=== PATIENT | female | born 1980 | race Caucasian/White ===

== ENCOUNTER 2023-07-23 13:58 | Emergency (ER) | payer BC, MEDICAID, SELFPAY ==
--- NOTE | 2023-07-23 14:04 | ECG_ITS ---
[facility] Test Date: 2023-07-23 Pat Name: Estefanía Beck Department: Room: Gender: Female [employer] In[employer]: : 1980 Requested By: Daniel St Order Number: [id number] Varghese MD: Lorena Luque M.D. Measurements Intervals [place] Rate: 67 P: 69 ID: [id number] QRS: 62 QRSD: 70 T: 62 QT: 402 QTc: 427 Interpretive Statements SINUS RHYTHM SEPTAL MYOCARDIAL INFARCTION , OF INDETERMINATE AGE [40+ ms Q WAVE IN V1/V2] No previous ECG available for comparison Electronically Signed On 07-24-2023 0:24:32 CDT by Lorena Luque M.D. [email or web address]
[2023-07-23 14:09] VITALS: PULSE 82; RESP 15; TEMP 36.6; O2SAT 99; BMI 25.7
--- NOTE | 2023-07-23 14:17 | XRR_ITS ---
PROCEDURE INFORMATION: Exam: XR Chest Exam date and time: 07/23/2023 2:26 PM Age: 43 years old Clinical indication: Pain; Angina pectoris; Additional info: Cp TECHNIQUE: Imaging protocol: Radiologic exam of the chest. Views: 1 view. COMPARISON: No relevant prior studies available. FINDINGS: Lungs: No focal consolidation. Pleural spaces: No evidence of pneumothorax. No evidence of pleural effusion. Heart/Mediastinum: Cardiomediastinal silhouette is within normal limits. Moderate projects over the left hemithorax. Bones/joints: No evidence of acute osseous abnormality. XR/XR chest 1V portable [id number] IMPRESSION: 1. No acute cardiopulmonary abnormality.
[2023-07-23 14:52] LABS: Basophils # 0.1 10^3/uL (0.0-0.1); Basophils % 0.9 %; Eosinophils # 0.1 10^3/uL (0.0-0.8); Eosinophils % 1.1 %; Hematocrit 42.8 % (36-47); Lymphocytes # 2.7 10^3/uL (0.8-4.8); Lymphocytes % 26.2 %; Mean Corpuscular HGB Conc 33.4 g/dL (30-55); Mean Corpuscular Hemoglobin 30.8 pg (27-33); Mean Platelet Volume 10.9 fL (7.4-10.4); Monocytes # 0.9 10^3/uL (0.2-0.9); Monocytes % 8.4 %; Neutrophils # 6.43 10^3/uL (1.8-7.7); Neutrophils % 63.1 %; Nucleated Red Blood Cells % 0 %; Platelet Count 240 10^3/cmm (157-399); Red Blood Count 4.65 10^6/uL (3.85-5.65); Red Cell Distribution Width 12.6 % (12.1-15.1); White Blood Count 10.19 10^3/uL (3.29-11.43)
[2023-07-23 15:06] LABS: Alanine Aminotransferase 11 U/L (0-33); Albumin Level 4.1 g/dL (3.5-5.2); Alkaline Phosphatase 67 U/L (35-105); Anion Gap 15.8 (5-19); Aspartate Amino Transferase 13 U/L (0-32); Blood Urea Nitrogen 11 mg/dL (6-20); Calcium 9.3 mg/dL (8.5-10.5); Carbon Dioxide 23 mmol/L (22-29); Chloride 106 mmol/L (98-107); Creatinine Clr Calc Pharmacy 121.5486; Globulin 3.1 g/dL (1.3-4.6); Glomerular Filtration Rate 90.5 mL/min (90-130); Glucose 102 mg/dL (65-115); Osmolality Calculated 292 mOsm/kg (285-295); Potassium 3.8 mmol/L (3.5-5.1); Sodium 141 mmol/L (136-145); Total Bilirubin 0.3 mg/dL (0.15-1.2); Total Protein 7.2 g/dL (6.6-8.7)
[2023-07-23 15:08] LABS: Troponin(5th) Baseline < 6 ng/L (0-10)
[2023-07-23 15:15] LABS: Erythrocyte Sedimentation Rate 19 mm/hr (0-15)
--- NOTE | 2023-07-23 15:36 | ED_ITS ---
HPI - Chest Pain 2 General: Chief Complaint: Chest Pain Stated Complaint: chest feels heavy when lying down Time Seen by Provider: 07/23/23 15:30 History of Present Illness: 43-year-old with a history of atrial fib rillation and tobacco dependence who presents to the emergency room with bradycardia and shortness of breath and chest discomfort. She says over the last few days since she quit smoking she has been having bradycardia and shortness of breath at night. She says when she lays down she gets tight in her chest. And short of breath. Review of Systems 2 Narrative: Constitutional symptoms: Negative except as documented in HPI. Skin symptoms: Negative except as documented in HPI. Eye symptoms: Negative except as documented in HPI. ENMT symptoms: Negative except as documented in HPI. Respiratory symptoms: Negative except as documented in HPI. Cardiovascular symptoms: Negative except as documented in HPI. Gastrointestinal symptoms: Negative except as documented in HPI. Genitourinary symptoms: Negative except as documented in HPI. Musculoskeletal symptoms: Negative except as documented in HPI. Neurologic symptoms: Negative except as documented in HPI. Psychiatric symptoms: Negative except as documented in HPI. Endocrine symptoms: Negative except as documented in HPI. Physical Exam 2 Narrative: EXAM NARRATIVE: General: Alert, no acute distress. Skin: Warm, dry. Head: Normocephalic, atraumatic. Neck: Supple, trachea midline. Eye: Extraocular movements are intact. Ears, nose, mouth and throat: mucosa moist. Cardiovascular: Regular, Normal peripheral perfusion. Respiratory: Lungs are clear to auscultation, respirations are non-labored, breath sounds are equal, Symmetrical chest wall expansion. Gastrointestinal: Soft, Nontender, Non distended, Normal bowel sounds. Musculoskeletal: Normal ROM, no deformity. Neurological: Alert and oriented, No focal neurological deficit observed. Psychiatric: Cooperative, appropriate mood & affect. Course 2 Vital Signs: Vital signs: Vital Signs Temperature 97.9 F 07/23/23 14:09 Pulse Rate 82 07/23/23 14:09 Respiratory Rate 15 07/23/23 14:09 Pulse Oximetry 99 07/23/23 14:09 Oxygen Delivery Me thod Room Air 07/23/23 14:09 MDM - Chest Pain Medical Decision Making Medical decision making: Differential diagnosis including but not limited to and based on the above HPI, review of systems and physical exam: Patient was sent here to rule out heart failure and acute coronary syndrome. EKG, chest x-ray and lab work were ordered. Orders placed to evaluate differential diagnosis based on the above differential, HPI and physical exam Chest x-ray: No acute process. No infiltrate. No pneumothorax. No cardiomegaly. This was reviewed and interpreted by myself the ER physician. Lab Review: Laboratory results were reviewed and interpreted by myself the emergency room physician. White count is 10. Hemoglobin is 14. BUN and creatinine are 11 and 0.7. Initial troponin is negative. EKG: Time 1404 rate 67. Normal sinus rhythm, No ST-T changes, no ectopy, normal [place] & QRS intervals, This was reviewed and interpreted by myself the ER physician at 1406 I reviewed the patient's medical record. Reexamination: Patient remained stable with no increased work of breathing. No altered mental status. No focal motor deficits. Assessment and plan: Shortness of breath Bradycardia Tobacco abuse in remission -Discussed with the patient that perhaps metoprolol should be ceased for some time. Also discussed that with her having quit smoking her symptoms could very well be from anxiety. She has follow-up with cardiology on Saturday. We discussed if things worsen to come back to the emergency room. I do not see any signs of heart failure. Her heart size is normal. She has no lower extremity swelling. And while she is here she is not bradycardic. - Discharged home - Discussed plan with patient. Answered any questions. - Evaluation and treatment of this problem were appropriate in the emergency setting. Lab Data 07/23/23 14:40 07/23/23 14:40 Radiology Impressions Chest X-Ray 07/23/23 14:17 IMPRESSION: 1. No acute cardiopulmonary abnormality. Laboratory Results WBC 10.19 10^3/uL (3.29-11.43) 07/23/23 14:40 RBC 4.65 10^6/uL (3.85-5.65) 07/23/23 14:40 Hgb 14.30 g/dL (11.27-16.99) 07/23/23 14:40 Hct 42.8 % (36-47) 07/23/23 14:40 MCV 92.0 fl (85-98) 07/23/23 14:40 MCH 30.8 pg (27-33) 07/23/23 14:40 MCHC 33.4 g/dL (30-55) 07/23/23 14:40 RDW 12.6 % (12.1-15.1) 07/23/23 14:40 Plt Count 240 10^3/cmm (157-399) 07/23/23 14:40 MPV 10.9 fL (7.4-10.4) H 07/23/23 14:40 Neut % (Auto) 63.1 % 07/23/23 14:40 Lymph % (Auto) 26.2 % 07/23/23 14:40 Spencer % (Auto) 8.4 % 07/23/23 14:40 Eos % (Auto) 1.1 % 07/23/23 14:40 Baso % (Auto) 0.9 % 07/23/23 14:40 Neut # (Auto) 6.43 10^3/uL (1.8-7.7) 07/23/23 14:40 Lymph # (Auto) 2.7 10^3/uL (0.8-4.8) 07/23/23 14:40 Spencer # (Auto) 0.9 10^3/uL (0.2-0.9) 07/23/23 14:40 Eos # (Auto) 0.1 10^3/uL (0.0-0.8) 07/23/23 14:40 Baso # (Auto) 0.1 10^3/uL (0.0-0.1) 07/23/23 14:40 Nucleated RBC % (auto) 0 % 07/23/23 14:40 Nucleated RBCs # 0.0 /100WBC 07/23/23 14:40 ESR 19 mm/hr (0-15) H 07/23/23 14:40 Sodium 141 mmol/L (136-145) 07/23/23 14:40 Potassium 3.8 mmol/L (3.5-5.1) 07/23/23 14:40 Chloride 106 mmol/L (98-107) 07/23/23 14:40 Carbon Dioxide 23 mmol/L (22-29) 07/23/23 14:40 Anion Gap 15.8 (5-19) 07/23/23 14:40 BUN 11 mg/dL (6-20) 07/23/23 14:40 Creatinine 0.7 mg/dL (0.5-0.9) 07/23/23 14:40 GFR Calculation 90.5 mL/min (90-130) 07/23/23 14:40 Glucose 102 mg/dL (65-115) 07/23/23 14:40 Calculated Osmolality 292 mOsm/kg (285-295) 07/23/23 14:40 Calcium 9.3 mg/dL (8.5-10.5) 07/23/23 14:40 Total Bilirubin 0.3 mg/dL (0.15-1.2) 07/23/23 14:40 AST 13 U/L (0-32) 07/23/23 14:40 ALT 11 U/L (0-33) 07/23/23 14:40 Alkaline Phosphatase 67 U/L (35-105) 07/23/23 14:40 Troponin T Baseline < 6 ng/L (0-10) 07/23/23 14:40 Total Protein 7.2 g/dL (6.6-8.7) 07/23/23 14:40 Albumin 4.1 g/dL (3.5-5.2) 07/23/23 14:40 Globulin 3.1 g/dL (1.3-4.6) 07/23/23 14:40 All radiology interpretation(s) finalized by discharge Discharge Plan Discharge Patient Disposition: Home Clinical Impression: Shortness of breath Condition: Stable Discharge Orders: Discharge ED (Routine); Ordered 07/23/23 Ordered By: Magalys Bryan Referrals: Jorge Ramirez MD [Family Provider] - Discharge Diet: Usual diet Discharge Activity: Increase activity as tolerated Patient Instructions: Bradycardia (ED) Activity Restrictions/Additional Instructions: Thank you for choosing [facility] for your healthcare needs today. Please realize this is an emergency room and that we are providing you with a medical screening exam and this may not be complete and all inclusive of all the testing and or work up that you may need to determine your ailment or severity of your illness. You have been screened and evaluated and felt safe for discharge. Health conditions do change or evolve sometimes and as such it is important that you follow up with your Primary Doctor to be re checked, 3-5 days is a general good time frame for follow up. You are always welcome to return to the ED for re assessment if your symptoms are worsening or you have new concerns Coding Level of Care Code ED Rn Bone Marrow Transplant for Vinicio Guzman
[2023-07-23 16:02] VITALS: BP 126/87; PULSE 68; O2SAT 98
== END 2023-07-23 16:07 | disposition home or self-care (01) ==
PROVIDERS: Emergency Medicine; Emergency Provider Emergency Medicine; Family Provider Family Medicine
DX: R06.02 Shortness of breath (principal)
CPT/HCPCS: 36415; 71045; 80053; 84484; 85025; 85651; 93005; 99285

== ENCOUNTER 2023-12-26 13:42 | Outpatient (CLI) | payer BC, MEDICAID, SELFPAY ==
--- NOTE | 2023-12-26 13:47 | MM_ITS ---
WS: [id number] BILATERAL 3D TOMOSYNTHESIS DIGITAL DIAGNOSTIC MAMMOGRAPHY WITH CAD CLINICAL INFORMATION: ABNORMAL MAMMOGRAM HISTORY: 6-month follow-up calcifications recommended from prior outside RIGHT breast mammogram dated 12/17/2022. Patient presents today for follow-up of this calcifications 12/26/2023 COMPARISON: 2022 and 2017 outside mammograms reviewed TECHNIQUE: Bilateral CC, MLO, and ML views. FINDINGS: The breasts are composed of heterogeneous fibroglandular density, which can limit the detection of sm all underlying mass lesions. Calcifications appear increased compared to 2017. There are several clus ters of calcifications evaluated. Most are very faint and amorphous but appear grossly stable compare d to 12/17/2022 considering differences in technique. These would be difficult to biopsy stereotactic ally at this time These remain indeterminate and recommend 6-month follow-up with spot magnification views Unremarkable LEFT breast with prior biopsy marker MM/MM diag BI tomosynthesis [id number] IMPRESSION: DENSITY: The breasts are heterogeneously dense, which may obscure small masses. BI-RADS: 3 - Probably Benign FOLLOW UP: 6 Month Follow-up Recommend 6-month follow-up RIGHT breast diagnostic mammography with spot magni fication views of the calcifications
== END 2023-12-26 13:43 | disposition home or self-care (01) ==
LOC: RAD 13:43
PROVIDERS: Family Provider Family Medicine; PCP Family Medicine; Visit Provider Family Medicine
DX: R92.8 Other abnormal and inconclusive findings on diagnostic imaging of breast (principal); R92.333 Mammographic heterogeneous density, bilateral breasts; R92.1 Mammographic calcification found on diagnostic imaging of breast
CPT/HCPCS: 77062; G0279

== ENCOUNTER → 2024-05-01 08:16 | Outpatient (BNVA) | payer BC, MEDICAID, SELFPAY | PROVIDERS: Family Provider Family Medicine; PCP Family Medicine; Visit Provider Nurse Practitioner | DX: M79.642 Pain in left hand (principal); M79.641 Pain in right hand | CPT/HCPCS: 73130 ==

== ENCOUNTER 2024-06-29 05:43 | Day surgery (SDC) | payer BC, MEDICAID, SELFPAY ==
[2024-06-29] VITALS (15 sets, daily range): BP systolic 95–149; BP diastolic 62–98; PULSE 77–98; RESP 12–28; TEMP 36.1–36.5; O2SAT 92–100; BMI 28.3
--- NOTE | 2024-06-29 05:49 | P.HPUD_ITS ---
Surgery/Procedure H&P Update DATE OF PROCEDURE: June 29, 2024 DATE H&P PERFORMED: 06/23/24 H&P UPDATE INFORMATION: I have reviewed H&P completed within last 30 days, I have examined patient prior to procedure, No changes to prior documentation, H&P is in [facility] EMR on date indicated and Risks and benefits of the procedure reviewed PLANNED PROCEDURE: Operation Date: 06/29/24 07:00 Proposed Procedures p RIGHT Excision Suppurative Hydradenitis Axilla 67285 L73.2(Right) - Lenard Vasquez MD
[2024-06-29] MEDS: sodium chloride 0.9% 1,000 ML 30 ML IV (06:09)
[2024-06-29] MEDS: scopolamine 1 mg PATCH 1 PATCH TRANSDERMA (06:09)
--- NOTE | 2024-06-29 07:08 | ANES.PREANE2 ---
Pre-Anesthetic Assessment Height/Weight: Height 1.8 m Weight 92.079 kg Temp Pulse Resp BP Pulse Ox O2 Del Method 97.6 F 88 18 132/85 98 Room Air 06/29/24 05:59 06/29/24 05:59 06/29/24 05:59 06/29/24 05:59 06/29/24 05:59 06/29/24 05:59 Operation Date: 06/29/24 07:00 Proposed Procedures p RIGHT Excision Suppurative Hydradenitis Axilla 89401 L73.2(Right) - Lenadr Vasquez MD Familial anesthetic complications: PONV, Violent upon waking, slowto wake Last intake: Intake Last Liquid Date 06/28/24 Last Liquid Time 20:00 Last Solid Date 06/28/24 Last Solid Time 20:30 Social No alcohol and No tobacco former smoker Exam alert, oriented x 3, clear to auscultation bilaterally and regular rate & rhythm Airway Mallampati: Class II Dentition: loose (Loose molar) CV/HEM Atrial Fibrillation Anesthetic Plan ASA status: 3 Anesthesia: General Risk of > 500 ml blood loss (7ml/kg in children): No Medications/Allergies Home Medications ?Medication ?Instructions ?Recorded ?Confirmed ?Last Taken ?Type metoprolol succinate 25 mg 25 mg PO DAILY 05/01/24 06/25/24 06/28/24 History tablet,extended release 24 hr cholecalciferol (vitamin D3) 10 10 mcg PO DAILY 06/23/24 06/25/24 06/28/24 History mcg (400 unit) capsule clindamycin HCl 300 mg capsule 300 mg PO TID 10 days #30 caps 06/23/24 06/25/24 06/28/24 Rx clindamycin phosphate 1 % lotion 1 applic topical DAILY 06/23/24 06/29/24 06/28/24 History pofcyzdg-ywq-hwbjs acid 0.4 1 tab PO ONCE 06/23/24 06/25/24 06/28/24 History mg-lycopene 300 mcg-lutein 250 mcg tablet (Centrum Silver) mupirocin 2 % topical ointment 1 applic topical ONCE PRN Rash 06/23/24 06/29/24 06/28/24 History Allergies Allergy/AdvReac Type Severity Reaction Status Date / Time amoxicillin Allergy ADR-Hyperte Verified 06/29/24 05:54 nsion ampicillin Allergy ADR-Hyperte Verified 06/29/24 05:54 nsion azithromycin Allergy ADR-Hyperte Verified 06/29/24 05:54 nsion bee venom protein (honey bee) Allergy ALGY-Anaphy Verified 06/29/24 05:54 laxis ciprofloxacin Allergy ADR-Hyperte Verified 06/29/24 05:54 nsion codeine Allergy ADR-Vomitin Verified 06/29/24 05:54 g hydromorphone (From Dilaudid) Allergy ADR/ALGY-Pa Verified 06/29/24 05:54 lpitations latex Allergy ALGY-Rash Verified 06/29/24 05:54 Penicillins Allergy ADR-Hyperte Verified 06/29/24 05:54 nsion Current Medications Generic Name Dose Route Start Last Admin Trade Name Freq PRN Reason Stop Dose Admin Sodium Chloride 1,000 mls @ 30 mls/hr 06/29/24 06:00 06/29/24 06:09 Sodium Chloride 0.9% IV 06/30/24 05:59 30 mls/hr .Q24H ASHLEY Administration PFSH Anesthesia Medical History (Updated 06/23/24 @ 08:47 by Lenard Vasquez MD) Arthritis of carpometacarpal (CMC) joint of both thumbs Positive Tinel's sign Social History (Updated 06/23/24 @ 08:25 by LUISA Pal) Smoking and tobacco/nicotine status: current every day tobacco/nicotine user cigarettes Data Anesthesia Cardiac Studies: No Data to Display
[2024-06-29] MEDS: clindamycin 300 MG/50 ML PREMIX 100 MG IV (07:10)
[2024-06-29] MEDS: BUPivacaine 0.25% INJ 10 mL INJECTION (07:49)
[2024-06-29] MEDS: lidocaine-epi 1% 20 mL INJ 10 ML INJECTION (07:49)
--- NOTE | 2024-06-29 08:26 | PM.OP ---
Operative Report Date of procedure: June 29, 2024 Pre-op diagnosis: Right axillary hidradenitis suppurativa Post-op diagnosis: Same Post-op findings: Inflamed glandular tissue of the right axilla Procedure done: Excision of right axillary hidradenitis suppurativa Specimens removed/disposition: Right axillary hidradenitis suppurativa Surgeon: Lenard Vasquez MD Hospice Patient Care Secretary: [place] OR Staff Estimated blood loss: 5 Complications: none Brief History: 44-year-old female with right axillary hidradenitis that has been persistent for almost 10 years now. Patient presented to my office and after discussion of risk benefits with side to proceed with excision. Right axillary region was marked in the preoperative area Procedure: Patient was brought into the OR, she was placed in a supine position. General anesthesia was given. The right axilla was prepped and draped in the usual sterile fashion. Timeout was conducted. I then made elliptical incision enclosing the draining sinus on the right axilla, the incision was deepened to subcutaneous tissue. With careful dissection with electrocautery I completely encircled the glandular tissue, this required creating a small flap on the lateral direction, the deep dissection was down to the level of the axillary fascia. The tissue was completely excised and sent to pathology. The measurement of the wound was 8 x 2 x 2 cm. The wound was irrigated and hemostasis was achieved. The lateral flap in the subcutaneous tissue was created to allow for better approximation of the skin. The wound was closed in layers using #2-0 Vicryl for deep tissue, #3-0 Vicryl for the subcutaneous tissue and #3-0 nylon vertical mattress for the skin. Steri-Strips were applied. At the end of the procedure all counts were correct, the patient tolerated well the procedure was transferred to the PACU in stable condition
[2024-06-29] MEDS: ondansetron 2 mg/ML SDV 2 mL 4 MG IVP ×2 (08:45→08:52)
[2024-06-29] MEDS: metoclopramide 5 mg/mL SDV 2 mL 10 MG IVP (08:58)
[2024-06-29] MEDS: diphenhydrAMINE 50 mg/mL SDV 1mL 12.5 MG IVP (10:04)
--- NOTE | 2024-06-29 10:35 | ANE.PACU2 ---
Inpatient post-anesthesia follow up: Airway intact: Yes Vital signs: Temperature 97.7 F Pulse Rate 77 Respiratory Rate 18 Blood Pressure 146/96 Pulse Oximetry 98 Oxygen Delivery Me thod Room Air Oxygen Flow Rate Fraction of Inspir ed Oxygen Hydration adequate: Yes Nausea and vomiting: No Pain level: 1 Mental status: Baseline
== END 2024-06-29 10:34 | disposition home or self-care (01) ==
PROVIDERS: PCP Family Medicine; Visit Provider Surgery
PROC: (CPT 11451; principal; 2024-06-29 07:00)
DX: L73.2 Hidradenitis suppurativa (principal); I48.91 Unspecified atrial fibrillation; F17.210 Nicotine dependence, cigarettes, uncomplicated; Z79.899 Other long term (current) drug therapy; Z88.0 Allergy status to penicillin; Z88.5 Allergy status to narcotic agent; Z91.040 Latex allergy status
CPT/HCPCS: 11451; 88307; J1100; J1200; J1885; J2250; J2371; J2405; J2704; J2765; J3010; J3490; J7030; J9999

== ENCOUNTER 2024-07-16 10:56 | Outpatient (CLI) | payer BC, MEDICAID, SELFPAY ==
--- NOTE | 2024-07-16 11:02 | MM_ITS ---
WS: [id number] RIGHT 3D TOMOSYNTHESIS DIGITAL MAMMOGRAPHY WITH CAD CLINICAL INFORMATION: ABNORMAL MAMMOGRAM HISTORY: 6-month follow-up calcifications COMPARISON: 4 and outside mammograms 2022 and 2016 TECHNIQUE: 3 views of the right breast were obtained. FINDINGS: The right breast is composed of heterogeneous fibroglandular density tissue, which can limit the detection of small underlying mass lesions. As previously described calcifications of increasing 2017. Several clusters of calcifications are evaluated today. Calcifications are again amorphous in appearance and very faint but appears stable compared to 2023 and 12/17 2022. Recommend 1 additional 6-month follow-up to confirm at least 2-year stability. MM/MM diag RT tomosynthesis [id number] IMPRESSION: DENSITY: The breasts are heterogeneously dense, which may obscure small masses. BI-RADS: 3 - Probably Benign FOLLOW UP: 6 Month Follow-up Recommend 6-month follow-up RIGHT breast diagnostic mammography with spot magni fication views of the calcifications
== END 2024-07-16 10:57 | disposition home or self-care (01) ==
PROVIDERS: PCP Family Medicine; Visit Provider Family Medicine
DX: R92.8 Other abnormal and inconclusive findings on diagnostic imaging of breast (principal); R92.333 Mammographic heterogeneous density, bilateral breasts; R92.1 Mammographic calcification found on diagnostic imaging of breast
CPT/HCPCS: 77061; G0279

== ENCOUNTER → 2024-08-28 09:10 | Outpatient (BNVA) | payer BC, MEDICAID, SELFPAY | PROVIDERS: PCP Family Medicine; Visit Provider Thoracic Surgery (Cardiothoracic Vascular Surgery) | DX: L73.2 Hidradenitis suppurativa (principal) | CPT/HCPCS: 87070; 87077; 87186 ==

== ENCOUNTER 2025-01-14 11:03 | Outpatient (CLI) | payer BC, MEDICAID, SELFPAY ==
--- NOTE | 2025-01-14 11:08 | MM_ITS ---
WS: [id number] BILATERAL 3D TOMOSYNTHESIS DIGITAL DIAGNOSTIC MAMMOGRAPHY WITH CAD CLINICAL INFORMATION: ABNORMAL MAMMOGRAM HISTORY: Follow-up calcifications COMPARISON: 2023 TECHNIQUE: Bilateral CC, MLO, and ML views. FINDINGS: The breasts are composed of heterogeneous fibroglandular density, which can limit the detection of small underlying mass lesions. Stable appearance of described tiny punctate calcifications central RIGHT breast. These are stable since 2022. Recommend return to annual screening mammography No suspicious focal mass, asymmetry, calcifications, or architectural distortion. No evidence of malignancy. MM/MM diag tomosynthesis [id number] IMPRESSION: DENSITY: The breasts are heterogeneously dense, which may obscure small masses. BI-RADS: 2 - Benign FOLLOW UP: 1 Year Follow-up Recommend return to annual screening mammography.
== END 2025-01-14 11:04 | disposition home or self-care (01) ==
LOC: RAD 11:04
PROVIDERS: PCP Family Medicine; Visit Provider Family Medicine
DX: Z12.31 Encounter for screening mammogram for malignant neoplasm of breast (principal); R92.333 Mammographic heterogeneous density, bilateral breasts; R92.1 Mammographic calcification found on diagnostic imaging of breast
CPT/HCPCS: 77062; G0279